=== PATIENT | female | born 1995 | race African-American/Black ===

== ENCOUNTER 2022-10-23 17:06 | Emergency (ER) | payer OTHER, SELFPAY ==
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
[2022-10-23 17:25] VITALS: BP 155/108; PULSE 87; RESP 16; TEMP 36.6; O2SAT 100
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
== END 2022-10-23 18:26 | disposition home or self-care (01) ==
PROVIDERS: Emergency Provider Registered Nurse; PCP Family Medicine
DX: S40.012A Contusion of left shoulder, initial encounter (principal); V18.4XXA Pedal cycle driver injured in noncollision transport accident in traffic accident, initial encounter; M54.6 Pain in thoracic spine; I10 Essential (primary) hypertension
CPT/HCPCS: 71046; 73030; 99204; G0463

== ENCOUNTER 2023-12-20 07:22 | Emergency (ER) | payer OTHER, SELFPAY ==
--- NOTE | ~2023-12-20 | XR_ITS ---
XR chest 1V portable 12/20/2023 08:17 Indication: Cough and congestion Procedure: AP portable chest Comparison: 10/23/2022 Findings: Right perihilar airspace disease. Heart size normal. No pleural effusion, edema or pneumoth orax. Impression: 1: Right perihilar airspace disease, suspicious for pneumonia. Reviewed, dictated and finalized at location B. Impression: 1: Right perihilar airspace disease, suspicious for pneumonia.
[2023-12-20 07:27] VITALS: BP 136/97; PULSE 120; RESP 20; TEMP 37.7; O2SAT 96
[2023-12-20 08:16] VITALS: BP 131/95; PULSE 105; RESP 15; O2SAT 100
[2023-12-20 08:19] LABS: Influenza A QL RT-PCR Negative (Negative); Influenza B QL RT-PCR Negative (Negative); RSV RNA, RT-PCR Negative (Negative); SARS-CoV-2 RNA PCR Negative (Negative)
--- NOTE | 2023-12-20 08:40 | ED.GENADULT ---
HPI - General Adult General Chief complaint: Upper Respiratory Infection Stated complaint: WANTS COVID TEST Time Seen by Provider: 12/20/23 07:27 History of Present Illness HPI narrative: 28-year-old female presenting to the emergency department for evaluation for cough and congestion. Patient reports symptoms started yesterday. Patient does report body ache, fatigue and a pleuritic chest pain. Patient reports that she does have a prior history of tachycardia. Patient has no prior history of PE or DVT. Patient is not on control, patient denies any falls or injuries. Patient denies any leg pain or leg swelling. Related Data Home Medications Medication Instructions Recorded Confirmed amlodipine 5 mg tablet 5 mg PO DAILY 10/23/22 10/23/22 Allergies Allergy/AdvReac Type Severity Reaction Status Date / Time No Known Allergies Allergy Verified 12/20/23 07:31 Review of Systems Review of Systems: All systems reviewed & are unremarkable except as noted in HPI and below PMFSH Past Medical History Medical History (Updated 12/20/23 @ 08:44 by Homero Carballo MD) Hypertension Social History Social History (Updated 10/24/22 @ 15:00 by Vicenta Costa NP) Smoking status: Never smoker Gender identity (if verbalized by the patient): Female Exam Narrative: APPEARANCE: Well appearing, no pain, no distress, well-nourished. HEAD: normocephalic, atraumatic. EYES: PERRLA/EOMI, conjunctivae clear. NOSE: Normal no drainage EARS:TMS clear with good light reflex. THROAT: Pharynx clear, no exudate. NECK: Supple. No adenopathy, no masses. RESPIRATORY: Airway patent, respirations nonlabored. Clear to auscultation bilaterally, no rales, rhonchi, wheezing. CARDIOVASCULAR: Regular rate and rhythm without murmurs rubs or gallops. ABDOMINAL: Soft, nontender, nondistended, normal bowel sounds MUSCULOSKELETAL: Moves all extremities. Strength/ROM intact, No edema, No calf tenderness. NEURO: Alert. Cranial nerves II through XII intact. Good gait. Good coordination SKIN: Warm, dry. Normal Color PSYCHIATRIC: Normal affect/mood. Course Course Emergency Course: Patient was started on antibiotic for possible underlying pneumonia Vital Signs Vital signs: Vital Signs Temperature 99.8 F H 12/20/23 07:27 Pulse Rate 120 H 12/20/23 07:27 Respiratory Rate 20 12/20/23 07:27 Blood Pressure 136/97 H 12/20/23 07:27 Pulse Oximetry 96 12/20/23 07:27 Temperature 98.2 F 12/20/23 09:53 Pulse Rate 102 H 12/20/23 09:53 Respiratory Rate 19 12/20/23 09:53 Blood Pressure 146/98 H 12/20/23 09:53 Pulse Oximetry 100 12/20/23 09:53 Oxygen Delivery Room Air 12/20/23 08:16 Medical Decision Making MDM Narrative Medical decision making narrative: 28-year-old female presenting to the emergency department for evaluation for cough just an and body aches. Patient is afebrile. Patient is saturating well on room air. When patient is at rest she is not tachycardic. Patient was negative for influenza RSV and for COVID. Chest x-ray was concerning for possible underlying pneumonia. Patient has no underlying medication allergies. Patient was started on Augmentin and azithromycin. Patient is being discharged home with antibiotics for pneumonia along with Tessalon Perles for cough suppression and albuterol for worsening shortness of breath. Patient was encouraged of close follow-up with her primary care physician. All questions concerns were addressed. Differential Diagnosis Differential Diagnosis: PE, pneumonia, COVID, RSV, influenza, pleurisy Vital Signs Vital Signs: Vital Signs Temperature 99.8 F H 12/20/23 07:27 Pulse Rate 120 H 12/20/23 07:27 Respiratory Rate 20 12/20/23 07:27 Blood Pressure 136/97 H 12/20/23 07:27 Pulse Oximetry 96 12/20/23 07:27 Temperature 98.2 F 12/20/23 09:53 Pulse Rate 102 H 12/20/23 09:53 Respiratory Rate 19 12/20/23 09:53 Blood Pressure 146/
--- NOTE | 2023-12-20 08:49 | PC.NURSE ---
Charting done by Leena Vega [employer] Technician reviewed and RN agrees
[2023-12-20] MEDS: AZITHROMYCIN 250 MG TABLET 500 MG PO (09:01)
[2023-12-20] MEDS: AMOXICILLIN/CLAVULANATE K 875-125 MG TAB 1 TABLET PO (09:02)
[2023-12-20 09:03] VITALS: BP 134/97; PULSE 109; RESP 15; O2SAT 99
[2023-12-20 09:53] VITALS: BP 146/98; PULSE 102; RESP 19; TEMP 36.8; O2SAT 100
== END 2023-12-20 09:55 | disposition home or self-care (01) ==
PROVIDERS: Emergency Provider Emergency Medicine; PCP Family Medicine
DX: J18.9 Pneumonia, unspecified organism (principal); I10 Essential (primary) hypertension; Z20.822 Contact with and (suspected) exposure to COVID-19
CPT/HCPCS: 71045; 87637; 99283; A9270